=== PATIENT | male | born 1985 | race Two or more races ===

== ENCOUNTER 2017-03-06 08:13 | Emergency (ER) | payer MEDICAID ==
[~2017-03-06 08:13] MED LIST: APAP/HYDROCODON1 T13 PO; COL100 PO
[2017-03-06 12:34] VITALS: BP 143/92
== END 2017-03-06 12:34 | disposition home or self-care (01) ==
LOC: ED 08:13
DX: S05.01XA Injury of conjunctiva and corneal abrasion without foreign body, right eye, initial encounter (principal); H11.421 Conjunctival edema, right eye; X58.XXXA Exposure to other specified factors, initial encounter; Y93.89 Activity, other specified; Y99.8 Other external cause status; Y92.89 Other specified places as the place of occurrence of the external cause